=== PATIENT | female | born 1955 | race Caucasian/White ===

== ENCOUNTER 2016-09-20 17:49 | Emergency (ER) | payer OTHER, MEDICARE ==
[2016-09-20] MEDS ORDERED: SODIUM CHLORIDE 0.9% 1000ML 1,000 ML ONE (18:05)
[2016-09-20] MEDS ORDERED: NALOXONE HCL INJ 0.4 MG/ML VIAL ONE (18:05)
[2016-09-20] MEDS ORDERED: LACTATED RINGERS 1,000 ML IVS ONE (18:12)
--- NOTE | 2016-09-20 18:15 | ED.PDOC ---
History of Present Illness - General Chief Complaint: General Stated Complaint: Loss of consciousness Time Seen by Provider: 09/20/16 18:07 Source: Vital Signs reviewed, EMS notes reviewed, family Exam Limitations: clinical condition - History of Present Illness Initial Comments: Briana Moreno 61 y/o female [place] this afternoon by family members and ems was called up she was given Narcan 0.2mg by ems and brought here to [facility]-er;On arrival here at er she was unresponsive even with painful stimuli no reaction-and was about to be intubated suddenly was grimacing when laryngoscope blade was in side her oropharynx and talking her vital signs was stable so it was discontinued then became unresponsive again but her saturation [id number] room air and her bp/and heart rate was normal .So nasal trumpet was inserted and woke up again .Re- check after 10 minutes was talking to daughter and nurses also wanting to urinate.She stated that she fell and hit her head on a trailer hitch yesterday but no loc no medical attention was done.Denies use of illicit drugs or heavy drinking recently. Could not remember how long she had been on her floater. Timing/Duration: unknown Severity: severe Improving Factors: nothing Worsening Factors: nothing Associated Symptoms: other - unresponsive Allergies/Adverse Reactions: Allergies NO KNOWN ALLERGY Allergy (Verified 09/20/16 18:15) Home Medications: Ambulatory Orders Cymbalta 09/20/16 Hydrocodone/Acetaminophen 09/20/16 Potassium Chloride Tab [Micro-K] 10 meq PO BID #10 tab 09/20/16 Xanax 09/20/16 Review of Systems - Review of Systems Constitutional: States: no symptoms reported EENTM: States: no symptoms reported Respiratory: States: no symptoms reported Cardiology: States: no symptoms reported Gastrointestinal/Abdominal: States: no symptoms reported Genitourinary: States: no symptoms reported Musculoskeletal: States: no symptoms reported Neurological: States: no symptoms reported Endocrine: States: no symptoms reported Hematologic/Lymphatic: States: no symptoms reported Unable to Obtain Due To: condition, other - patient re-examined at 2203h ROS was taken again Past Medical History (General) - Patient Medical History Hx Asthma: No Hx Hypertension: No Hx Diabetes: No Hx Other PMH: Yes - anxiety Surgical History: other - hysterectomy,lumbar spine - Social History Hx Tobacco Use: No Hx Alcohol Use: Yes - socially,no heavy drinking Hx Substance Use: No Hx Substance Use Treatment: No Hx Depression: No Hx Physical Abuse: No Hx Emotional Abuse: No Hx Suspected Abuse: No Family Medical History - Family History Mother Family History: Unknown Physical Exam - Physical Exam General Appearance: No apparent distress, Other - unresponsive Eye Exam: bilateral other - BLESSING ENT Exam: normal ENT inspection, TMs normal, pharynx normal Neck: non-tender, supple, normal inspection, trachea midline Respiratory: chest non-tender, lungs clear, normal breath sounds, no respiratory distress, no accessory muscle use Cardiovascular/Chest: normal peripheral pulses, regular rate, rhythm, no gallop , no murmur Peripheral Pulses: radial,right: 2+, radial,left: 2+ Gastrointestinal/Abdominal: normal bowel sounds, non tender, soft, no organomegaly Back Exam: normal inspection, no CVA tenderness, no vertebral tenderness Extremities Exam: non-tender, normal range of motion, no evidence of injury Mental Status: unresponsive, other - opened eyes and talking when 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 Exam: PERRL Motor/Sensory: negative Babinski's sign Skin Exam: normal color, warm/dry Progress - Progress Progress: 09/20/16 18:14 Vital Signs - 8 hr 09/20/16 18:04 Temperature 99.0 F Pulse Rate [ 95 H Left Radial] Respiratory 16 Rate Blood Pressure 158/99 [Left Arm] O2 Sat by Pulse 100 Oximetry 09/20/16 22:00 Patient had been fully awake since admit to er talking with family answering all questions;more alert oriented no focal neuro deficits 09/20/16 22:10 Unable to tolerate Potassium iv stated burning pain iv site so it was discontinued and to give orally instead - Results/Orders Results/Orders: 09/20/16 18:12 Catheter:Gaitan QSHIFT Intake/Output PRN 09/20/16 18:30 LACTIC ACID Stat 09/20/16 18:50 URINE CULTURE W/COLONY COUNT Stat 09/20/16 20:19 KCl 20Meq/Water For Inj 100Ml [Potassium 20meq in Water 100ml] 20 meq Premix Bag 1 bag IVPB ONCE Laboratory Results - last 24 hr 09/20/16 09/20/16 09/20/16 17:52 17:52 18:06 WBC 4.8 RBC 4.44 Hgb 13.6 Hct 38.7 MCV 87.2 MCH 30.5 MCHC 35.0 RDW 12.4 Plt Count 237 MPV 7.6 Absolute Neuts (auto) 2.30 Absolute Lymphs (auto) 2.00 Absolute Monos (auto) 0.40 Absolute Eos (auto) 0.10 Absolute Basos (auto) 0.00 Neutrophils % 47.9 Lymphocytes % 41.2 Monocytes % 8.3 Eosinophils % 2.3 Basophils % 0.3 PT 10.7 INR 0.950 PTT (SP) 35.7 pCO2 45 pO2 58 L HCO3 22.8 ABG pH 7.330 L ABG O2 Saturation 86.7 L ABG Base Excess -2.6 ABG Deoxyhemoglobin 13.0 H Oxyhemoglobin % 85.1 L Carboxyhemoglobin % 1.2 Methemoglobin % Sat 0.7 Calc Total Hemoglobin 12.7 Sodium 136 Potassium 2.9 L Chloride 101 Carbon Dioxide 24 Anion Gap 13.9 BUN < 5 L Creatinine 0.55 L BUN/Creatinine Ratio 9.1 L Random Glucose 79 Serum Osmolality 268.1 L Calcium 8.8 Magnesium 2.2 Total Bilirubin 1.1 H Direct Bilirubin 0.2 Indirect Bilirubin 0.9 H AST 22 ALT 12 Alkaline Phosphatase 68 Creatine Kinase 102 CK-MB (CK-2) 1.1 CK-MB (CK-2) % Not Reportable Troponin I < 0.02 Serum Total Protein 7.1 Albumin 4.3 Urine Color Urine Appearance Urine pH Ur Specific Kaiser Urine Protein Urine Glucose (UA) Urine Ketones Urine Blood Urine Nitrite Urine Bilirubin Urine Urobilinogen Ur Leukocyte Esterase Urine RBC Urine WBC Ur Epithelial Cells Amorphous Sediment Urine Bacteria Urine Opiates Screen Urine Barbiturates Ur Phencyclidine Scrn U Amphetamin/Meth Scrn U Benzodiazepines Scrn U Cocaine Metab Screen U Cannabinoids Screen Ethyl Alcohol 137.00 H* 09/20/16 09/20/16 18:50 18:50 WBC RBC Hgb Hct MCV MCH MCHC RDW Plt Count MPV Absolute Neuts (auto) Absolute Lymphs (auto) Absolute Monos (auto) Absolute Eos (auto) Absolute Basos (auto) Neutrophils % Lymphocytes % Monocytes % Eosinophils % Basophils % PT INR PTT (SP) pCO2 pO2 HCO3 ABG pH ABG O2 Saturation ABG Base Excess ABG Deoxyhemoglobin Oxyhemoglobin % Carboxyhemoglobin % Methemoglobin % Sat Calc Total Hemoglobin Sodium Potassium Chloride Carbon Dioxide Anion Gap BUN Creatinine BUN/Creatinine Ratio Random Glucose Serum Osmolality Calcium Magnesium Total Bilirubin Direct Bilirubin Indirect Bilirubin AST ALT Alkaline Phosphatase Creatine Kinase CK-MB (CK-2) CK-MB (CK-2) % Troponin I Serum Total Protein Albumin Urine Color Yellow Urine Appearance Clear Urine pH 5.5 Ur Specific Kaiser <= 1.005 Urine Protein Negative Urine Glucose (UA) Negative Urine Ketones Negative Urine Blood Small H Urine Nitrite Negative Urine Bilirubin Negative Urine Urobilinogen 0.2 Ur Leukocyte Esterase Small H Urine RBC 0-1 Urine WBC 1-3 Ur Epithelial Cells 1-3 Amorphous Sediment Trace Urine Bacteria Rare Urine Opiates Screen Negative Urine Barbiturates Negative Ur Phencyclidine Scrn Negative U Amphetamin/Meth Scrn Negative U Benzodiazepines Scrn Positive H U Cocaine Metab Screen Negative U Cannabinoids Screen Negative Ethyl Alcohol - EKG/XRAY/CT EKG: Sinus, no ST T wave changes Comments: heart rate-77 CT Ordered: Yes - head-no acute abnormalities /radiologist Departure - Departure Clinical Impression: Altered awareness, transient, Hypokalemia Time of Disposition: 22:08 Disposition: Discharge to Home or Self Care Condition: Good Departure Forms: ED Discharge - Pt. Copy, Patient Portal Self Enrollment Instructions: DI for Hypokalemia, Hypokalemia Prescriptions: Potassium Chloride Tab [Micro-K] 10 meq PO BID #10 tab Home Medications: Ambulatory Orders Cymbalta 09/20/16 Hydrocodone/Acetaminophen 09/20/16 Potassium Chloride Tab [Micro-K] 10 meq PO BID #10 tab 09/20/16 Xanax 09/20/16 Additional Instructions: RETURN TO EMERGENCY ROOM NEEDED;Follow up with primary md in [place] 09/23
--- NOTE | 2016-09-20 19:09 | CT ---
PROCEDURE: Head CLINICAL HISTORY: 61 years Female ams COMPARISON: None. TECHNIQUE: Contiguous axial images obtained through the brain without IV contrast. This exam was performed according to our department optimization program which includes automated exposure control, adjustment of the mA and/or kv according to patient size and/or use of iterative reconstruction technique. FINDINGS: The ventricles and sulci are within normal limits for the patient's age. No midline shift or mass effect. No masses identified. No acute intracranial hemorrhage. No fluid or significant mucosal thickening in the visualized paranasal sinuses. No depressed calvarial fractures. IMPRESSION: No acute intracranial abnormality is identified. Electronically signed by: Michaelle Drummond 09/20/2016 7:08 PM CDT
--- NOTE | 2016-09-20 19:21 | CT ---
PROCEDURE: Cervical Spine CLINICAL HISTORY: 61 years Female ams COMPARISON: None. TECHNIQUE: Contiguous axial images obtained through the cervical spine without IV contrast. Coronal and sagittal reformatted images obtained. This exam was performed according to our department optimization program which includes automated exposure control, adjustment of the mA and/or kv according to patient size and/or use of iterative reconstruction technique. FINDINGS: There is reversal of the normal lordosis centered at C4-C5. There is narrowing of the C4-5 disc interspace with osteophytosis and subchondral sclerosis. Degenerative changes are present at the skull base and along the C1-C2 level. No prevertebral soft tissue swelling. Bilateral neural foraminal stenosis and mild central canal stenosis at C4-5. Left neural foraminal stenosis at C5-6. Bilateral neural foraminal stenosis at C6-7. IMPRESSION: No acute cervical spinal fracture is identified. Multilevel degenerative change Electronically signed by: Michaelle Drummond 09/20/2016 7:20 PM CDT
[2016-09-20] MEDS ORDERED: KCL 20MEQ/WATER FOR INJ 100ML 20 MEQ in PREMIX BAG 1 BAG IVPB ONE (20:19)
[2016-09-20] MEDS ORDERED: POTASSIUM CHLORIDE 20 MEQ TAB PO ONE ×2 (20:19→22:09)
[2016-09-20] MEDS ORDERED: SODIUM CHLORIDE 0.9% 500ML 500 ML IVS ONE (20:22)
[2016-09-20] MEDS ORDERED: KCL 20MEQ/WATER FOR INJ 100ML 100 ML IVPB ONE (20:35)
[2016-09-20 23:41] VITALS: BP 137/75; TEMP 98.9; O2SAT 99
== END 2016-09-20 22:30 | disposition home or self-care (01) ==
LOC: ER 17:49
DX: R40.4 Transient alteration of awareness (principal); E87.6 Hypokalemia; F41.9 Anxiety disorder, unspecified; Z79.899 Other long term (current) drug therapy
CPT/HCPCS: 36415; 36600; 70450; 72125; 80048; 80076; 80307; 80320; 81001; 82550; 82553; 82803; 82805; 83605; 84484; 85025; 85610; 85730; 87086; 93005; J3480; J7030; J7040; J7120